=== PATIENT | female | born 1970 | race Caucasian/White ===

== ENCOUNTER 2023-11-08 00:25 | Emergency (ER) | payer MEDICAID ==
[~2023-11-08] VITALS: Ht 160 cm; Wt 79.4 kg
[2023-11-08 00:32] VITALS: BP_SYST 134; PULSE 74; RESP 16; TEMP 96.4; O2SAT 99
[2023-11-08] MEDS: KETOROLAC TROMETHAMINE 60 MG/2 ML VIAL IM ONE (00:46)
[2023-11-08] MEDS ORDERED: PSEU120T57 PO (00:55)
[2023-11-08] MEDS ORDERED: PRED20TA PO (00:55)
[2023-11-08] MEDS ORDERED: IBUP-1971 PO (00:55)
[2023-11-08 01:13] VITALS: BP_SYST 134; PULSE 74; RESP 16; TEMP 96.4; O2SAT 99
== END 2023-11-08 01:13 | disposition home or self-care (01) ==
LOC: SED 00:25
DX: U07.1 COVID-19 (principal); R05.9 Cough, unspecified; R03.0 Elevated blood-pressure reading, without diagnosis of hypertension; R51.9 Headache, unspecified; Z90.49 Acquired absence of other specified parts of digestive tract
CPT/HCPCS: 99283; 96372; J1885